=== PATIENT | male | born 1975 ===

== ENCOUNTER 2019-12-16 12:14 | Emergency (ER) | payer BC, OTHER ==
[2019-12-16 12:24] VITALS: BP 111/76; PULSE 70
--- NOTE | 2019-12-16 12:30 | EDM.PDOC ---
ED HPI GENERAL MEDICAL PROBLEM - General Chief Complaint: Neuro Symptoms/Deficits Stated Complaint: SEIZURE Time Seen by Provider: 12/16/19 12:20 Source of Information: Reports: Patient, EMS History Limitations: Reports: No Limitations - History of Present Illness INITIAL COMMENTS - FREE TEXT/NARRATIVE: 44M h/o seizures, remote history of EtOH abuse presents after apparent seizure. Occurred just [employer] lasting unknown duration. Patient was confused afterwards and not answering questions appropriately per EMS although now he is back to baseline without complaints. He states this is his first seizure in about 6 years. He has followed up with neurology but has since moved and is currently not on any AEDs other than medical marijuana and nightly klonopin. He has been taking those regularly although cutting back on the marijuana. No recent illnesses, no recent EtOH use. - Related Data Allergies Allergy/AdvReac Type Severity Reaction Status Date / Time No Known Allergies Allergy Verified 12/16/19 12:18 Home Meds: Home Meds ClonazePAM [KlonoPIN] 0.5 mg PO DAILY 12/16/19 [History] Past Medical History Neurological History: Reports: Seizure Other Neuro History: has not taken medications or had any events since 2014 prior to today (12/16/19). - Infectious Disease History Infectious Disease History: Reports: None Social & Family History - Family History Family Medical History: Noncontributory - Tobacco Use Smoking Status *Q: Current Every Day Smoker Years of Tobacco use: 6 Packs/Tins Daily: 0.2 - Caffeine Use Caffeine Use: Reports: Coffee - Recreational Drug Use Recreational Drug Use: Yes Recreational Drug Type: Reports: Marijuana/Hashish ED ROS GENERAL - Review of Systems Review Of Systems: Comprehensive ROS is negative, except as noted in HPI. ED EXAM, NEURO - Physical Exam Exam: See Below Exam Limited By: No Limitations General Appearance: Alert, WD/WN, No Apparent Distress Eye Exam: Bilateral Eye: EOMI, PERRL Ears: Normal External Exam Nose: Normal Inspection Throat/Mouth: Normal Inspection Head Exam: Normocephalic, Other (small abrasions on face) Neck: Normal Inspection, Non-Tender Respiratory/Chest: No Respiratory Distress, Lungs Clear, Normal Breath Sounds, No Accessory Muscle Use Cardiovascular: Normal Peripheral Pulses, Regular Rate, Rhythm Neurological: Alert, Normal Mood/Affect, CN II-XII Intact, Normal Gait, No Motor/Sensory Deficits, Oriented x 3 Extremities: Normal Inspection Psychiatric: Normal Affect, Normal Mood Skin Exam: Warm, Dry EKG INTERPRETATION EKG Date: 12/16/19 Time: 12:33 Rhythm: NSR Rate (Beats/Min): 78 Kerrick: Normal P-Wave: Present QRS: Normal ST-T: Normal QT: Normal Course - Vital Signs Last Recorded V/S: Last Vital Signs Temp 97.3 F 12/16/19 12:20 Pulse 70 12/16/19 12:20 Resp 18 12/16/19 12:20 BP 111/76 12/16/19 12:20 Pulse Ox 97 12/16/19 12:20 - Re-Assessments/Exams Free Text/Narrative Re-Assessment/Exam: 12/16/19 12:33 Known seizure disorder, back at baseline. Will d/c with neurology f/u, will defer labs/imaging. Patient is very reasonable and understanding of his medical condition and agrees to come back for any repeat seizure episodes as >/= 2 seizures in a 24-hr period can be concerning and warrants further workup. He understands this. He agrees to be around people through the evening and to not be alone. He agrees to f/u with neurology as he does not have a local neurologist here. Info provided. Departure - Departure Time of Disposition: 12:28 Disposition: Home, Self-Care 01 Condition: Good Clinical Impression: Seizure - Discharge Information Instructions: Seizure, Adult, [id number] Referrals: Neurologist, Neurologist [Other] () Forms: ED Department Discharge Additional Instructions: The following information is given to patients seen in the emergency department who are being discharged to home. This information is to outline your options for follow-up care. We provide all patients seen in our emergency department with a follow-up referral. The need for follow-up, as well as the timing and circumstances, are variable depending upon the specifics of your emergency department visit. If you don't have a primary care physician on staff, we will provide you with a referral. We always advise you to contact your personal physician following an emergency department visit to inform them of the circumstance of the visit and for follow-up with them and/or the need for any referrals to a consulting specialist. The emergency department will also refer you to a specialist when appropriate. This referral assures that you have the opportunity for follow-up care with a specialist. All of these measure are taken in an effort to provide you with optimal care, which includes your follow-up. Under all circumstances we always encourage you to contact your private physician who remains a resource for coordinating your care. When calling for follow-up care, please make the office aware that this follow-up is from your recent emergency room visit. If for any reason you are refused follow-up, please contact the [facility] Emergency Department at and asked to speak to the emergency department charge nurse. Sepsis Event Note (ED) - Evaluation Sepsis Screening Result: No Definite Risk - Focused Exam Vital Signs: Vital Signs Temp Pulse Resp BP Pulse Ox 12/16/19 12:20 97.3 F 70 18 111/76 97
== END 2019-12-16 12:41 | disposition home or self-care (01) ==
LOC: MW.ED 12:14
DX: R56.9 Unspecified convulsions (principal); F17.210 Nicotine dependence, cigarettes, uncomplicated
CPT/HCPCS: 93005; 99283; 99284-25